=== PATIENT | female | born 1995 | race Caucasian/White ===

== ENCOUNTER 2018-05-15 10:51 | Emergency (ER) | payer OTHER ==
[~2018-05-15] VITALS: Ht 170.2 cm; Wt 61.2 kg
[2018-05-15 11:11] VITALS: BP 109/74
[2018-05-15] MEDS ORDERED: Albuterol ud Inhalation HHN ONE (11:15)
[2018-05-15] MEDS ORDERED: Ipratropium 0.02% Inh Soln 2.5ml UD HHN ONE (11:15)
[2018-05-15 11:24] VITALS: BP 109/74
--- NOTE | 2018-05-15 11:54 | Emergency Room Report ---
History of Present Illness General Chief Complaint: Asthma Source: Patient Present Illness HPI Patient presents with reports of feeling she might have asthma exacerbation Patient reports that she has had previous history of asthma was doing well over the past several months did not need to use her medications very much Patient gives a report of having different breathing studies done as well there was a follow-up which she did not make it to This morning patient felt some tightness in her chest Denies any vomiting or diarrhea denies any pleurisy denies any recent travel denies any calf pain denies any fevers And reports that after speaking to her mom presents for further evaluation Allergies: Coded Allergies: No Known Allergies (Unverified , 05/15/18) Patient History Past Medical History: see triage record Pertinent Family History: none Last Menstrual Period: 05/15/18 Now: No Reviewed Nursing Documentation: PMH: Agreed; PSxH: Agreed Nursing Documentation-PMH Past Medical History: No History, Except For Hx Asthma: Yes Review of Systems All Other Systems: negative except mentioned in HPI Physical Exam Vital Signs Date Time Temp Pulse Resp B/P (MAP) Pulse Ox O2 Delivery O2 Flow Rate FiO2 05/15/18 10:55 98.3 77 20 109/74 100 Room Air 98.2 Sp02 EP Interpretation: reviewed, normal General Appearance: no apparent distress Head: normocephalic, atraumatic Eyes: bilateral eye PERRL, bilateral eye EOMI ENT: hearing grossly normal, normal pharynx Neck: full range of motion, supple Respiratory: lungs clear, normal breath sounds, no respiratory distress, no retraction, no accessory muscle use Cardiovascular #1: regular rate, rhythm Musculoskeletal: normal inspection Neurologic: alert, oriented x3, responsive Skin: normal color, no rash Lymphatic: no adenopathy Medical Decision Making Diagnostic Impression: Primary Impression: shortness of breath ER Course Given the patient's history and complaints multiple differentials were considered Including cardiac, cardiopulmonary, vascular pathology I recommended obtaining EKG Imaging of the chest and breathing treatment to assess how she feels with the intervention Patient is asking regarding breathing test in the emergency room I did discuss with her that this is not a routine performance in the emergency room Given that the patient reports that she would like to go to another facility to obtain breathing test And does not want to have any further testing performed here She is aware that not obtaining these examinations and evaluations can lead to missed diagnoses such as pneumothorax(collapsed lung), cardiac pathology, other lung disease leading to worsening symptoms and possible Patient is within full decision-making capacity is refusing those examinations at this time She was dispositioned with the diagnosis of shortness of breath And reports that she would following for further testing outpatient Last Vital Signs Date Time Temp Pulse Resp B/P (MAP) Pulse Ox O2 Delivery O2 Flow Rate FiO2 05/15/18 11:24 98.2 76 20 109/74 100 Room Air 98.2 Status: unchanged Disposition: HOME, SELF-CARE Condition: Unknown Referrals: NON PHYSICIAN (PCP) Patient Instructions: Shortness of Breath, [id number] Additional Instructions: It has been advised to obtain EKG of your heart, x-ray of your chest, and attempt a breathing treatment to see how this improves your breathing sensation. Without any intervention it is difficult to provide appropriate diagnosis. You are aware that emergent diagnoses can be missed without obtaining these examinations and are leaving with refusal of several interventions requested Jess Caldwell DO May 15, 2018 11:54
== END 2018-05-15 11:30 | disposition home or self-care (01) ==
LOC: EMR 11:20
DX: J45.901 Unspecified asthma with (acute) exacerbation (principal)
CPT/HCPCS: 99282